=== PATIENT | male | born 1935 | race Caucasian/White ===

== ENCOUNTER 2020-08-11 09:20 | Emergency (ER) | payer MEDICARE ==
[~2020-08-11] VITALS: Ht 180.3 cm; Wt 74.4 kg
[~2020-08-11 09:20] MED LIST: ASPIR 8181 MG PO; VITAMIN B-12500 MCG PO; VITAMINC500 PO
[2020-08-11 09:30] LABS: ABSOLUTE BASOPHILS 0.1 thou/uL (0.0-0.2); ABSOLUTE EOSINOPHILS 0.1 thou/uL (0.0-0.7); ABSOLUTE LYMPHOCYTES 2.4 thou/uL (0.8-5.3); ABSOLUTE MONOCYTES 0.7 thou/uL (0.0-1.2); ABSOLUTE NEUTROPHILS 6.5 thou/uL (1.6-8.1); BASOPHILS 0.6 %; HEMATOCRIT 39.6 % (42.0-52.0); LYMPHOCYTES 24.2 %; MCH 32.1 pg (26.0-34.0); MCHC 35.2 g/dL (28.0-37.0); MONOCYTES 7.6 %; MPV 6.7 fl. (7.2-11.1); NUCLEATED RBCS 0 /100WBC; PLATELET COUNT* 356 thou/uL (150-400); POLYS 66.6 %; RBC 4.36 mil/uL (4.50-6.00); RDW-CV 13.3 % (10.5-14.5); WBC 9.8 thou/uL (4.0-11.0)
[2020-08-11 10:10] LABS: APTT 24.1 Seconds (25.0-31.3); INR 1.2; PROTIME 12.3 Seconds (9.20-11.50)
[2020-08-11 10:12] LABS: CALCIUM 8.7 mg/dL (8.5-10.1); CREATININE 1.1 mg/dL (0.6-1.3); POTASSIUM 3.7 mmol/L (3.5-5.1)
[2020-08-11 10:16] LABS: ALBUMIN 3.7 g/dL (3.4-5.0); TOTAL BILIRUBIN 1.3 mg/dL (<0.1-1.0); TOTAL PROTEIN 7.6 g/dL (6.4-8.2)
[2020-08-11 12:04] VITALS: BP 130/68
--- NOTE | 2020-08-12 14:16 | EKG ---
[place] [address] ELECTROCARDIOGRAM REPORT Name: NICHOLASMEREDITHAVELINA HOLM Room: [facility]#: [id number] Admission: 08/11/20 Attend Phys: Discharge: 08/11/20 Date of : 39 Date of Service: 08/11/2033 Report #: [id number] THIS REPORT FOR: //name// [facility] ED Test Date: 2020-08-11 Test Time: 09:33:35 Pat Name: AVELINA VICENTE Department: Room: Gender: Bath Mixer: [facility] : 1935 Requested By: Moises Washington Order Number: [id number] MD: Wicho Panchal Measurements Intervals [place] Rate: 65 P: -14 [place]: 188 QRS: 26 QRSD: 147 T: -3 QT: 467 QTc: 486 Interpretive Statements Sinus rhythm Right bundle branch block No previous ECG available for comparison Electronically Signed On 08-12-2020 14:15:53 CDT by Wicho Panchal [email or web address] <ELECTRONICALLY SIGNED> By: Wicho Panchal MD, [facility] 08/12/20 1415 0933 2 Wicho Panchal MD, [facility] /EPI
== END 2020-08-11 12:04 | disposition home or self-care (01) ==
LOC: M.ERS 09:20
PROVIDERS: Family Medicine
DX: R61 Generalized hyperhidrosis (principal); Z85.21 Personal history of malignant neoplasm of larynx; W18.39XA Other fall on same level, initial encounter; Y93.89 Activity, other specified; Y92.89 Other specified places as the place of occurrence of the external cause; Y99.8 Other external cause status

== ENCOUNTER 2020-08-13 07:17 | Emergency (ER) | payer MEDICARE ==
[~2020-08-13] VITALS: Ht 180.3 cm; Wt 73.5 kg
[2020-08-13 07:46] LABS: ABSOLUTE BASOPHILS 0.1 thou/uL (0.0-0.2); ABSOLUTE LYMPHOCYTES 0.7 thou/uL (0.8-5.3); ABSOLUTE MONOCYTES 0.7 thou/uL (0.0-1.2); ABSOLUTE NEUTROPHILS 6.7 thou/uL (1.6-8.1); BASOPHILS 1.1 %; EOSINOPHILS 0.4 %; HEMATOCRIT 35.9 % (42.0-52.0); HEMOGLOBIN 12.8 gm/dL (14.0-18.0); LYMPHOCYTES 8.3 %; MCHC 35.8 g/dL (28.0-37.0); MCV 86.6 fL (80.0-100.0); MONOCYTES 8.2 %; MPV 7.4 fl. (7.2-11.1); NUCLEATED RBCS 0 /100WBC; PLATELET COUNT* 155 thou/uL (150-400); RBC 4.14 mil/uL (4.50-6.00); RDW-CV 13.5 % (10.5-14.5); WBC 8.1 thou/uL (4.0-11.0)
[2020-08-13] MEDS ORDERED: CHILDREN'S ASPI81 M1 PO (07:53)
[2020-08-13] MEDS ORDERED: ONCE DAILY1 EAC1 PO (07:54)
[2020-08-13] MEDS ORDERED: ASCORBIC ACID500 M3 PO (07:54)
[2020-08-13 08:04] LABS: CALCIUM 8.1 mg/dL (8.5-10.1); CREATININE 1.1 mg/dL (0.6-1.3); POTASSIUM 3.4 mmol/L (3.5-5.1)
[2020-08-13 08:07] LABS: ALBUMIN 3.3 g/dL (3.4-5.0); TOTAL BILIRUBIN 1.8 mg/dL (<0.1-1.0)
[2020-08-13 08:34] LABS: APTT 25.2 Seconds (25.0-31.3); INR 1.2; PROTIME 12.1 Seconds (9.20-11.50)
[2020-08-13 09:38] LABS: URINE BILIRUBIN NEGATIVE (Negative); URINE BLOOD 1+ (Negative); URINE CLARITY CLEAR; URINE COLOR DARK YELLOW; URINE GLUCOSE-RANDOM NEGATIVE (Negative); URINE KETONES TRACE (Negative); URINE LEUKOCYTES-REFLEX 1+ (Negative); URINE NITRITE-REFLEX NEGATIVE (Negative); URINE PROTEIN NEGATIVE (Negative); URINE SPECIFIC GRAVITY 1.025 (1.005-1.030)
[2020-08-13 09:44] LABS: BACTERIA-REFLEX 1-9 Few /HPF (None Seen); CRYSTALS None Seen /LPF (None Seen); HYALINE CASTS 4-10 Moderate /LPF (None Seen); MUCUS 4-6 Moderate strn/LPF (None Seen); SQUAMOUS 4-10 Moderate /LPF (0-3); URINE RBC 3-10 Few /HPF (0-2); URINE WBC-REFLEX 0-5 Rare /HPF (0-5)
[2020-08-13] MEDS ORDERED: NORCO 5-325 TA1 EAC2 PO (10:08)
[2020-08-13] MEDS ORDERED: KEFLEX500 M1 PO (10:09)
[2020-08-13 10:30] VITALS: BP 137/80
--- NOTE | 2020-08-13 13:40 | EKG ---
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
== END 2020-08-13 10:32 | disposition home or self-care (01) ==
LOC: M.ERS 07:17
PROVIDERS: Emergency Medicine Emergency Medical Services
DX: M79.651 Pain in right thigh (principal); N39.0 Urinary tract infection, site not specified

== ENCOUNTER 2021-06-25 07:52 | Emergency (ER) | payer MEDICARE ==
[~2021-06-25] VITALS: Ht 177.8 cm; Wt 76.7 kg
[~2021-06-25 07:52] MED LIST changes: +ASCORBIC ACID500 M3 PO; +CHILDREN'S ASPI81 M1 PO; +KEFLEX500 M1 PO; +NORCO 5-325 TA1 EAC2 PO; +ONCE DAILY1 EAC1 PO
[2021-06-25 08:35] LABS: ABSOLUTE LYMPHOCYTES 0.8 thou/uL (0.8-5.3); ABSOLUTE MONOCYTES 0.5 thou/uL (0.0-1.2); ABSOLUTE NEUTROPHILS 5.1 thou/uL (1.6-8.1); BASOPHILS 0.3 %; EOSINOPHILS 0.5 %; HEMATOCRIT 31.8 % (42.0-52.0); HEMOGLOBIN 11.2 gm/dL (14.0-18.0); MCH 31.8 pg (26.0-34.0); MCHC 35.4 g/dL (28.0-37.0); MCV 89.9 fL (80.0-100.0); MONOCYTES 7.4 %; MPV 7.9 fl. (7.2-11.1); NUCLEATED RBCS 0 /100WBC; PLATELET COUNT* 143 thou/uL (150-400); POLYS 78.8 %; RBC 3.53 mil/uL (4.50-6.00); RDW-CV 14.1 % (10.5-14.5); WBC 6.5 thou/uL (4.0-11.0)
[2021-06-25 08:46] LABS: ALBUMIN 3.4 g/dL (3.4-5.0); TOTAL BILIRUBIN 1.1 mg/dL (<0.1-1.0); TOTAL PROTEIN 6.5 g/dL (6.4-8.2)
[2021-06-25 10:45] LABS: URINE BILIRUBIN NEGATIVE (Negative); URINE BLOOD NEGATIVE (Negative); URINE CLARITY CLEAR; URINE COLOR YELLOW; URINE GLUCOSE-RANDOM NEGATIVE (Negative); URINE KETONES TRACE (Negative); URINE LEUKOCYTES NEGATIVE (Negative); URINE NITRITE NEGATIVE (Negative); URINE PROTEIN NEGATIVE (Negative); URINE SPECIFIC GRAVITY 1.015 (1.005-1.030)
--- NOTE | 2021-06-25 11:10 | EKG ---
[place] [address] ELECTROCARDIOGRAM REPORT Name: AVELINA VICENTE Room: [facility]#: [id number] Admission: 06/25/21 Attend Phys: Discharge: Date of : 39 Date of Service: 06/25/21 0756 Report #: [id number] THIS REPORT FOR: //name// [facility] ED Test Date: 2021-06-25 Test Time: 07:56:29 Pat Name: AVELINA VICENTE Department: Room: Gender: Bobbin Drier: : 1935 Requested By: Jaquan Amor Order Number: [id number] MD: Kan Freitas Measurements Intervals [place] Rate: 67 P: 50 [place]: 196 QRS: 71 QRSD: 143 T: 9 QT: 440 QTc: 465 Interpretive Statements Sinus rhythm Multiple premature complexes, vent & supraven Right bundle branch block Compared to ECG 08/13/2020 07:22:29 pvc noted Electronically Signed On 06-25-2021 11:10:36 CDT by Kan Freitas [email or web address] <ELECTRONICALLY SIGNED> By: Kan Freitas MD, [facility] 06/25/21 1110 0756 0756 Kan Freitas MD, [facility] /EPI
[2021-06-25] MEDS ORDERED: PROTONIX40 MG PO (12:32)
[2021-06-25 12:59] VITALS: BP 114/36
== END 2021-06-25 12:59 | disposition home or self-care (01) ==
LOC: M.ERS 07:52
PROVIDERS: Emergency Medicine
DX: R04.2 Hemoptysis (principal); R53.81 Other malaise; Z20.822 Contact with and (suspected) exposure to COVID-19

== ENCOUNTER 2021-09-24 15:42 | Emergency (ER) | payer MEDICARE ==
[~2021-09-24] VITALS: Ht 177.8 cm; Wt 71.7 kg
[~2021-09-24 15:42] MED LIST changes: +PROTONIX40 MG PO
[2021-09-24 16:11] LABS: ABSOLUTE EOSINOPHILS 0.1 thou/uL (0.0-0.7); ABSOLUTE LYMPHOCYTES 1.7 thou/uL (0.8-5.3); ABSOLUTE MONOCYTES 0.8 thou/uL (0.0-1.2); BASOPHILS 0.4 %; EOSINOPHILS 2.1 %; HEMATOCRIT 34.6 % (42.0-52.0); HEMOGLOBIN 12.1 gm/dL (14.0-18.0); LYMPHOCYTES 25.5 %; MCH 30.7 pg (26.0-34.0); MCHC 34.8 g/dL (28.0-37.0); MCV 88.1 fL (80.0-100.0); MONOCYTES 11.5 %; MPV 8.1 fl. (7.2-11.1); NUCLEATED RBCS 0 /100WBC; PLATELET COUNT* 157 thou/uL (150-400); POLYS 60.5 %; RBC 3.93 mil/uL (4.50-6.00); RDW-CV 14.4 % (10.5-14.5); WBC 6.6 thou/uL (4.0-11.0)
--- NOTE | 2021-09-24 16:21 | EKG ---
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 Hand: [place] : 1935 Requested By: Moises Washington Order Number: [id number] MD: Kan Freitas Measurements Intervals [place] Rate: 73 P: 65 [place]: 196 QRS: 3 QRSD: 142 T: -17 QT: 433 QTc: 478 Interpretive Statements Sinus rhythm Ventricular premature complex Right bundle branch block Compared to ECG 06/25/2021 07:56:29 no change Electronically Signed On 09-24-2021 16:21:27 CHANNEL BUSINESS MANAGER by Kan Freitas [email or web address] <ELECTRONICALLY SIGNED> By: Kan Freitas MD, [facility] 09/24/21 1621 1549 1549 Kan Freitas MD, [facility] /EPI
[2021-09-24 16:25] LABS: CALCIUM 8.4 mg/dL (8.5-10.1); CREATININE 0.8 mg/dL (0.6-1.3); POTASSIUM 3.3 mmol/L (3.5-5.1)
[2021-09-24 16:35] LABS: ALBUMIN 3.5 g/dL (3.4-5.0); MAGNESIUM 2.1 mg/dL (1.8-2.4); TOTAL BILIRUBIN 0.8 mg/dL (<0.1-1.0); TOTAL PROTEIN 6.7 g/dL (6.4-8.2)
[2021-09-24 17:05] VITALS: BP 135/94
== END 2021-09-24 17:09 | disposition home or self-care (01) ==
LOC: M.ERS 15:42
PROVIDERS: Family Medicine
DX: R07.89 Other chest pain (principal); Z90.89 Acquired absence of other organs

== ENCOUNTER 2021-11-01 07:00 | Emergency (ER) | payer MEDICARE ==
[~2021-11-01] VITALS: Ht 177.8 cm; Wt 71.7 kg
[2021-11-01 10:32] LABS: ABSOLUTE LYMPHOCYTES 0.6 thou/uL (0.8-5.3); ABSOLUTE MONOCYTES 0.3 thou/uL (0.0-1.2); ABSOLUTE NEUTROPHILS 3.9 thou/uL (1.6-8.1); BASOPHILS 0.4 %; EOSINOPHILS 0.1 %; HEMOGLOBIN 9.2 gm/dL (14.0-18.0); LYMPHOCYTES 12.6 %; MCH 30.3 pg (26.0-34.0); MCHC 34.1 g/dL (28.0-37.0); MCV 88.8 fL (80.0-100.0); MONOCYTES 5.7 %; NUCLEATED RBCS 0 /100WBC; PLATELET COUNT* 143 thou/uL (150-400); POLYS 81.2 %; RBC 3.04 mil/uL (4.50-6.00); RDW-CV 14.4 % (10.5-14.5); WBC 4.8 thou/uL (4.0-11.0)
[2021-11-01 10:41] LABS: CALCIUM 8.3 mg/dL (8.5-10.1); POTASSIUM 4.1 mmol/L (3.5-5.1)
[2021-11-01 10:46] LABS: ALBUMIN 3.4 g/dL (3.4-5.0); TOTAL BILIRUBIN 0.7 mg/dL (<0.1-1.0); TOTAL PROTEIN 6.6 g/dL (6.4-8.2)
[2021-11-01 12:10] LABS: URINE BILIRUBIN NEGATIVE (Negative); URINE BLOOD NEGATIVE (Negative); URINE CLARITY CLEAR; URINE COLOR YELLOW; URINE GLUCOSE-RANDOM NEGATIVE (Negative); URINE KETONES NEGATIVE (Negative); URINE LEUKOCYTES-REFLEX NEGATIVE (Negative); URINE NITRITE-REFLEX NEGATIVE (Negative); URINE PROTEIN NEGATIVE (Negative)
[2021-11-01] MEDS ORDERED: PROTONIX40 M2 PO (12:41)
[2021-11-01 12:50] VITALS: BP 116/59
--- NOTE | 2021-11-03 10:23 | EKG ---
[place] [address] ELECTROCARDIOGRAM REPORT Name: AVELINA VICENTE Room: [facility]#: [id number] Admission: 11/01/21 Attend Phys: Discharge: 11/01/21 Date of : 39 Date of Service: 11/01/21 0732 Report #: [id number] THIS REPORT FOR: //name// [facility] ED Test Date: 2021-11-01 Test Time: 07:32:27 Pat Name: AVELINA VICENTE Department: Room: Gender: M Data Security Administrator: [place] : 1935 Requested By: Vahe Ozuna Order Number: [id number] MD: Kan Freitas Measurements Intervals [place] Rate: 64 P: 24 [place]: 206 QRS: 65 QRSD: 125 T: 33 QT: 457 QTc: 472 Interpretive Statements Sinus rhythm Atrial premature complex Right bundle branch block Compared to ECG 09/24/2021 15:49:28 Atrial premature complex(es) now present Ventricular premature complex(es) no longer present Electronically Signed On 11-03-2021 10:23:10 VALIDATION ARCHITECT by Kan Freitas [email or web address] <ELECTRONICALLY SIGNED> By: Kan Freitas MD, FACC 11/03/21 1023 0732 0732 Kan Freitas MD, FAC /EPI
== END 2021-11-01 12:51 | disposition home or self-care (01) ==
LOC: M.ERS 07:00
PROVIDERS: Emergency Medicine Emergency Medical Services
DX: R07.89 Other chest pain (principal); Z20.822 Contact with and (suspected) exposure to COVID-19; R53.1 Weakness; Z90.89 Acquired absence of other organs